=== PATIENT | male | born 1940 | race Hispanic/Latino ===

== ENCOUNTER 2018-10-02 14:37 | Inpatient (IN) | payer MEDICARE ==
--- NOTE | 2018-10-02 14:44 | Emergency Department Report ---
Blank Doc - Documentation Documentation: This is a 78-year-old male that presents with right sided chest pain with shor tness of breathe. This initial assessment/diagnostic orders/clinical plan/treatment(s) is/are subject to change based on patient's health status, clinical progression and re- assessment by fellow clinical providers in the ED. Further treatment and workup at subsequent clinical providers discretion. Patient/guardians urged not to elope from the ED as their condition may be serious if not clinically assessed and managed. Initial orders include: 1- Patient sent to MAIN ED for further evaluation and treatment 2- Labs 3- EKG 4- CXR 5- Charge nurse notified patient to be brought back [facility].
[2018-10-02 15:12] LABS: Basophils % (Auto) 0.7 % (0.0-1.8); Eosinophils # (Auto) 0.1 K/mm3 (0.0-0.4); Eosinophils % (Auto) 1.6 % (0.0-4.3); Hematocrit 36.4 % (35.5-45.6); Lymphocytes # (Auto) 1.6 K/mm3 (1.2-5.4); Lymphocytes % (Auto) 23.8 % (13.4-35.0); Mean Corpuscular HGB Conc 33 % (32-34); Mean Corpuscular Volume 94 fl (84-94); Monocytes # (Auto) 0.5 K/mm3 (0.0-0.8); Monocytes % (Auto) 7.3 % (0.0-7.3); Platelet Count 141 K/mm3 (140-440); Red Blood Count 3.87 M/mm3 (3.65-5.03); Red Cell Distribution Width 15.4 % (13.2-15.2)
[2018-10-02 15:28] LABS: Creatine Kinase MB 4.6 ng/mL (0.0-4.0); INR 1.59 (0.87-1.13)
[2018-10-02 15:29] LABS: BUN/Creatinine Ratio 15; Blood Urea Nitrogen 22 mg/dL (9-20); Calcium 9.1 mg/dL (8.4-10.2); Hemolysis Index 7; Partial Thromboplastin Time 33.5 Sec. (24.2-36.6)
[2018-10-02] MEDS ORDERED: CARDIZEM IV ONE (15:45)
--- NOTE | 2018-10-02 16:00 | Emergency Department Report ---
ED Shortness of Breath HPI - General Chief Complaint: Dyspnea/Respdistress Stated Complaint: RAPID HEARTBEAT/SOB Time Seen by Provider: 10/02/18 14:42 Source: patient Mode of arrival: Wheelchair Limitations: No Limitations - History of Present Illness Initial Comments: 78-year-old male with history Afib, currently on Cardizem and a Eliquis, presents to ED with palpitations and shortness of breath. The patient also reports mild right-sided chest pain. 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: Bhavna Heart Complaint: shortness of breath, chest pain -: This afternoon Severity: moderate Quality: sharp Consistency: constant Improves With: nothing Worsens With: nothing Associated Symptoms: chest pain - Related Data Home Oxygen Therapy: No Home Medications Medication Instructions Recorded Confirmed Last Taken Apixaban [Eliquis] 5 mg PO QDAY 10/03/18 10/03/18 10/02/18 Atorvastatin [Lipitor Tab] 40 mg PO QHS 10/03/18 10/03/18 Unknown Imatinib Mesylate [Gleevec] 200 mg PO DAILY 10/03/18 10/03/18 10/02/18 09:00 Imatinib Mesylate [Gleevec] 200 mg PO QDAY 10/03/18 10/03/18 10/02/18 Losartan Potassium 100 mg QDAY 10/03/18 10/03/18 10/02/18 Metoprolol Xl 100 mg QDAY 10/03/18 10/03/18 10/02/18 dilTIAZem [CarDIZEM] 30 mg PO TID 10/03/18 10/03/18 Unknown Allergies Allergy/AdvReac Type Severity Reaction Status Date / Time No Known Allergies Allergy Unverified 01/13/15 08:38 ED Review of Systems ROS: Stated complaint: RAPID HEARTBEAT/SOB Other details as noted in HPI Comment: All other systems reviewed and negative Constitutional: denies: chills, fever Respiratory: shortness of breath. denies: cough Cardiovascular: chest pain, palpitations ED Past Medical Hx - Past Medical History Hx Hypertension: Yes Additional medical history: Luekemia-remission,esophagus narrowing,elevated cholesterol, AFIB - Surgical History Past Surgical History?: No - Social History Smoking Status: Former Smoker Substance Use Type: None - Medications Home Medications: Home Medications Medication Instructions Recorded Confirmed Last Taken Type Apixaban [Eliquis] 5 mg PO QDAY 10/03/18 10/03/18 10/02/18 History Atorvastatin [Lipitor Tab] 40 mg PO QHS 10/03/18 10/03/18 Unknown History Imatinib Mesylate [Gleevec] 200 mg PO DAILY 10/03/18 10/03/18 10/02/18 09:00 History Imatinib Mesylate [Gleevec] 200 mg PO QDAY 10/03/18 10/03/18 10/02/18 History Losartan Potassium 100 mg QDAY 10/03/18 10/03/18 10/02/18 History Metoprolol Xl 100 mg QDAY 10/03/18 10/03/18 10/02/18 History dilTIAZem [CarDIZEM] 30 mg PO TID 10/03/18 10/03/18 Unknown History ED Physical Exam - General Limitations: No Limitations General appearance: alert - Head Head exam: Present: atraumatic, normocephalic - Eye Eye exam: Present: normal appearance - ENT ENT exam: Present: mucous membranes moist - Neck Neck exam: Present: normal inspection - Respiratory Respiratory exam: Present: other (slightly tachypneic) - Cardiovascular Cardiovascular Exam: Present: tachycardia, irregular rhythm - GI/Abdominal GI/Abdominal exam: Absent: soft, distended, tenderness - Extremities Exam Extremities exam: Present: pedal edema (1+ bilaterally) - Neurological Exam Neurological exam: Present: alert, oriented X3 - Psychiatric Psychiatric exam: Present: normal affect, normal mood - Skin Skin exam: Present: warm, dry, intact, normal color ED Course Vital Signs 10/02/18 10/02/18 10/02/18 14:40 15:12 15:15 Temperature 97.5 F L Pulse Rate 118 H 120 H 127 H Pulse Rate [ Apical] Pulse Rate [ From Monitor] Pulse Rate [ Left Radial] Respiratory 24 20 21 Rate Blood Pressure Blood Pressure [Left] Blood Pressure 137/84 [Right] O2 Sat by Pulse 97 89 98 Oximetry 10/02/18 10/02/18 10/02/18 15:31 15:45 15:52 Temperature Pulse Rate 139 H 144 H 130 H Pulse Rate [ Apical] Pulse Rate [ From Monitor] Pulse Rate [ Left Radial] Respiratory 27 H 27 H Rate Blood Pressure Blood Pressure [Left] Blood Pressure [Right] O2 Sat by Pulse 98 98 Oximetry 10/02/18 10/02/1810/02/19 15:54 16:01 16:15 Temperature Pulse Rate 110 H 99 H 107 H Pulse Rate [ Apical] Pulse Rate [ From Monitor] Pulse Rate [ Left Radial] Respiratory 20 23 19 Rate Blood Pressure Blood Pressure 121/72 [Left] Blood Pressure [Right] O2 Sat by Pulse 100 100 99 Oximetry 10/02/18 10/02/18 10/02/18 16:30 16:45 16:49 Temperature 98 F Pulse Rate 114 H 112 H 120 H Pulse Rate [ Apical] Pulse Rate [ From Monitor] Pulse Rate [ Left Radial] Respiratory 25 H 18 20 Rate Blood Pressure 120/78 126/52 Blood Pressure 125/54 [Left] Blood Pressure [Right] O2 Sat by Pulse 98 100 98 Oximetry 10/02/18 10/02/18 10/02/18 17:00 17:15 17:30 Temperature Pulse Rate 123 H 117 H 111 H Pulse Rate [ Apical] Pulse Rate [ From Monitor] Pulse Rate [ Left Radial] Respiratory 25 H 25 H 27 H Rate Blood Pressure 127/76 129/76 Blood Pressure [Left] Blood Pressure [Right] O2 Sat by Pulse 98 95 99 Oximetry 10/02/18 10/02/18 10/02/18 17:45 18:00 18:15 Temperature Pulse Rate 105 H 127 H 127 H Pulse Rate [ Apical] Pulse Rate [ From Monitor] Pulse Rate [ Left Radial] Respiratory 28 H 19 26 H Rate Blood Pressure Blood Pressure [Left] Blood Pressure [Right] O2 Sat by Pulse 99 99 97 Oximetry 10/02/18 10/02/18 10/02/18 18:30 18:43 18:55 Temperature 97.7 F Pulse Rate 119 H 120 H 113 H Pulse Rate [ Apical] Pulse Rate [ From Monitor] Pulse Rate [ Left Radial] Respiratory 26 H 18 19 Rate Blood Pressure Blood Pressure 139/77 [Left] Blood Pressure [Right] O2 Sat by Pulse 98 97 Oximetry 10/02/18 10/02/18 10/02/18 19:01 19:15 19:30 Temperature Pulse Rate 119 H 129 H 120 H Pulse Rate [ Apical] Pulse Rate [ From Monitor] Pulse Rate [ Left Radial] Respiratory 22 26 H 24 Rate Blood Pressure 112/82 144/90 138/79 Blood Pressure [Left] Blood Pressure [Right] O2 Sat by Pulse 100 100 85 Oximetry 10/02/18 10/02/1819 19:45 20:01 20:15 Temperature Pulse Rate 114 H 129 H 127 H Pulse Rate [ Apical] Pulse Rate [ From Monitor] Pulse Rate [ Left Radial] Respiratory 23 18 24 Rate Blood Pressure 142/84 115/69 150/102 Blood Pressure [Left] Blood Pressure [Right] O2 Sat by Pulse 100 91 Oximetry 10/02/18 10/02/18 10/02/18 20:30 20:45 21:01 Temperature Pulse Rate 112 H 122 H 120 H Pulse Rate [ Apical] Pulse Rate [ From Monitor] Pulse Rate [ Left Radial] Respiratory 26 H 18 22 Rate Blood Pressure 135/78 128/82 125/81 Blood Pressure [Left] Blood Pressure [Right] O2 Sat by Pulse 99 97 98 Oximetry 10/02/18 10/02/18 10/02/18 21:11 21:20 21:31 Temperature Pulse Rate 134 H 108 H 122 H Pulse Rate [ Apical] Pulse Rate [ From Monitor] Pulse Rate [ Left Radial] Respiratory 26 H 24 23 Rate Blood Pressure 127/87 133/77 127/87 Blood Pressure [Left] Blood Pressure [Right] O2 Sat by Pulse 97 96 Oximetry 10/02/18 22:00 Temperature Pulse Rate 115 H Pulse Rate [ 120 H Apical] Pulse Rate [ 120 H From Monitor] Pulse Rate [ 122 H Left Radial] Respiratory Rate Blood Pressure Blood Pressure [Left] Blood Pressure [Right] O2 Sat by Pulse 97 Oximetry ED Medical Decision Making - Lab Data Result diagrams: 10/03/18 05:49 10/03/18 05:49 - EKG Data -: EKG Interpreted by Mo EKG shows normal: axis, intervals, QRS complexes, ST-T waves Rate: tachycardia (rate 126) - EKG Data Interpretation: other (Afib w/ RVR) - Radiology Data Radiology results: pending, report reviewed, image reviewed - Medical Decision Making 78-year-old male with history of A. fib presents with palpitations and shortness of breath. Symptoms of Cardizem was given, repeat briefly responded, however patient returned to a rate in the 120s. EKG showed no ST changes, troponin negative. CTA was obtained which did not show evidence of PE, however does show pericardial effusion and bilateral pleural effusions. Blood pressure has been stable. Will admit to hospitalist, Dr. Palomino, for further evaluation. Will try amiodarone for rate control. - Differential Diagnosis Afib w/ RVR, ACS, PE, pulm edema Critical Care Time: Yes Critical care time in (mins) excluding proc time.: 35 Critical care attestation.: If time is entered above; I have spent that time in minutes in the direct care of this critically ill patient, excluding procedure time. Critical Care Time: 35 minutes ED Disposition Clinical Impression: Atrial fibrillation with rapid ventricular response, Pleural effusion Disposition: OP ADMIT IP TO THIS HOSP Is pt being admited?: Yes Condition: Stable Time of Disposition: 19:34
--- NOTE | 2018-10-02 16:03 | XRay Report ---
PROCEDURES: XR CHEST 1V AP TECHNIQUE: AP portable view of the chest. HISTORY: Dyspnea COMPARISON: None FINDINGS: Lines, tubes, and devices: N/A Lungs and pleura: Trachea is normal in position. Mild infiltrate in the left lung base medially is se en. Cardiomediastinal silhouette: The heart lies in the right side of the chest consistent with dextrocar kizzy. The descending thoracic aorta appears to the left of the spine. The image is labeled with both r ight and left side markers. Gastric bubble was not visualized diaphragms to determine situs inversus. Other: Bony structures are intact. IMPRESSION: Mild infiltrate in the left base. Evidence for dextrocardia although the descending thoracic aorta is to left of the spine. This document is electronically signed by Jacinda Koehler MD., October 02 2018 04:00:51 PM ET
[2018-10-02] MEDS ORDERED: LOPRESSOR IV ONE (18:50)
[2018-10-02] MEDS ORDERED: LASIX IV ONE (19:33)
--- NOTE | 2018-10-02 19:37 | History and Physical Report ---
History of Present Illness Chief complaint: My heart is beating fast, and I cant breathe History of present illness: 78 YO Male with Atrial Fib currently on Therapeutic Anticoagulation(Eliquis), Leukemia(In Remission), HLD, HTN presents to ED for evaluation. Pt states that he has experienced chest palpitations for the past 1 day with worsening symptoms over the past 6 hours. Pt also acknowledges shortness of breath and right sided chest pain. Pt states that pain is 3-5/10, sharp, constant, not worsened with exertion, not relieved with rest. Pt transported to [facility] via private vehicle. Pt seen and evaluated in ED and found to have Atrial Fib with RVR as well as Respiratory Failure. Pt also found to have symptoms consistent with CHF complicated by bilateral pleural effusions. Pt initiated on amiodarone drip and admitted to telemetry. Cardiology consulted in ED. Pt denies fever, chills, NVD, Trauma, Medication noncompliance, skin rash, or recent ill contacts. Pt family at bedside during exam and interview. Discussed plan of care. Pt and family acknowledge understanding and agreement with care plan. Past History Past Medical History: atrial fib, cancer, hypertension, hyperlipidemia Past Surgical History: No surgical history, Other (reviewed) Social history: . denies: smoking, alcohol abuse, prescription drug abuse, IV drug use Family history: hypertension Medications and Allergies Allergies Allergy/AdvReac Type Severity Reaction Status Date / Time No Known Allergies Allergy Unverified 01/13/15 08:38 Review of Systems Constitutional: no weight loss, no weight gain, no fever, no chills Ears, nose, mouth and throat: no ear pain, no ear discharge, no tinnitis, no decreased hearing, no nose pain, no nasal discharge Cardiovascular: chest pain, palpitations, rapid/irregular heart beat, shortness of breath Respiratory: no cough, no cough with sputum, no excessive sputum, no hemoptysis Gastrointestinal: no abdominal pain, no nausea, no vomiting, no diarrhea, no constipation Genitourinary Male: no dysuria, no hematuria, no flank pain, no discharge, no urinary frequency, no urinary hesitancy Rectal: no pain, no incontinence, no bleeding Musculoskeletal: no neck stiffness, no neck pain, no shooting arm pain, no arm numbness/tingling, no low back pain, no shooting leg pain, no leg numbness/tingling Integumentary: no rash, no pruritis, no redness, no sores, no wounds Psychiatric: no memory loss, no change in sleep habits, no sleep disturbances, no insomnia, no hypersomnia, no change in appetite, no change in libido, no suicidal ideation Endocrine: no cold intolerance, no heat intolerance, no polyphagia, no excessive thirst, no excessive sweating Hematologic/Lymphatic: no easy bruising, no easy bleeding, no lymphadenopathy, no lymphedema Allergic/Immunologic: no wheezing, no persistent infections, no anaphylaxis, no angioedema Exam - Constitutional Vitals: Temp Pulse Resp BP Pulse Ox 97.7 F 129 H 26 H 144/90 100 10/02/18 18:43 10/02/18 19:15 10/02/18 19:15 10/02/18 19:15 10/02/18 19:15 General appearance: Present: mild distress - EENT Eyes: Present: PERRL ENT: hearing intact, clear oral mucosa - Neck Neck: Present: supple, normal ROM - Respiratory Respiratory effort: normal Respiratory: bilateral: diminished, rhonchi - Cardiovascular Rhythm: other (tachycardia) Heart Sounds: Present: S1 & S2. Absent: rub, click - Extremities Extremities: pulses symmetrical, No edema Peripheral Pulses: within normal limits - Abdominal General gastrointestinal: Present: soft, non-tender, non-distended, normal bowel sounds Male genitourinary: Present: normal - Integumentary Integumentary: Present: clear, warm, dry - Musculoskeletal Musculoskeletal: gait normal, strength equal bilaterally - Psychiatric Psychiatric: appropriate mood/affect, intact judgment & insight - Neurologic Neurologic: CNII-XII intact, moves all extremities Results - Labs CBC & Chem 7: 10/02/18 14:56 10/02/18 14:56 Labs: Abnormal lab results 10/02/18 10/02/18 10/02/18 Range/Units 14:56 14:56 14:56 RDW 15.4 H (13.2-15.2) % PT 20.0 H (12.2-14.9) Sec. INR 1.59 H (0.87-1.13) D-Dimer (0-234) ng/mlDDU Chloride 107.7 H (98-107) mmol/L BUN 22 H (9-20) mg/dL Glucose 154 H (75-100) mg/dL CK-MB (CK-2) 4.6 H (0.0-4.0) ng/mL CK-MB (CK-2) Rel Index 6.7 H (0-4) NT-Pro-B Natriuret Pep (0-900) pg/mL 10/02/18 10/02/18 Range/Units 15:45 16:06 RDW (13.2-15.2) % PT (12.2-14.9) Sec. INR (0.87-1.13) D-Dimer 901.3 H (0-234) ng/mlDDU Chloride (98-107) mmol/L BUN (9-20) mg/dL Glucose (75-100) mg/dL CK-MB (CK-2) (0.0-4.0) ng/mL CK-MB (CK-2) Rel Index (0-4) NT-Pro-B Natriuret Pep 3857 H (0-900) pg/mL Assessment and Plan - Patient Problems (1) Atrial fibrillation with rapid ventricular response Current Visit: Yes Status: Acute Plan to address problem: Admit to telemetry, Amiodarone bolus, and initiate amiodarone drip, target heart rate overnight between 75-100. Cardiology consulted in ED, (2) Respiratory failure Current Visit: Yes Status: Acute Qualifiers: Chronicity: acute Respiratory failure complication: hypoxia Qualified Code(s): J96.01 - Acute respiratory failure with hypoxia Plan to address problem: Supplemental oxygen, nebulizer therapy, NIPPV as clinically indicated, pulse oximetry, chest x ray, D dimer, CTA chest (3) CHF (congestive heart failure) Current Visit: Yes Status: Acute Qualifiers: Heart failure type: systolic Heart failure chronicity: acute Qualified Code(s): I50.21 - Acute systolic (congestive) heart failure Plan to address problem: Admit to telemetry, echo, cardiology consulted in ED, strict I/O, daily weight, afterload reduction, monitor uop q shift, diuresis as tolerated, (4) Pleural effusion Current Visit: Yes Status: Acute Plan to address problem: supportive care, treat CHF, repeat chest x ray 1-2 days as clinically indicated, (5) DVT prophylaxis Current Visit: Yes Status: Acute Plan to address problem: SCD to BLE while in bed.
[2018-10-02] MEDS ORDERED: PERCOCET 5/325 PO PRN (19:44)
[2018-10-02] MEDS ORDERED: PROVENTIL IH PRN (19:44)
[2018-10-02] MEDS ORDERED: MORPHINE IV PRN (19:44)
[2018-10-02] MEDS ORDERED: SODIUM CHLORIDE FLUSH SYRINGE 10 ML IV PRN (19:44)
[2018-10-02] MEDS ORDERED: TYLENOL PO PRN (19:44)
[2018-10-02] MEDS ORDERED: CORDARONE 900 MG in D5W 482 ML IV SCH (20:00)
--- NOTE | 2018-10-02 20:19 | Cat Scan Report ---
PROCEDURE: CT ANGIO CHEST HISTORY: chest pain, sob FINDINGS: Contrast-enhanced CT angiography of the chest was performed following the intravenous admin istration of iodinated contrast. Sagittal and coronal MIP three-dimensional reformatted images were g enerated. These images demonstrate no CT evidence of pulmonary thromboembolic disease. There is no aortic disse ction. There is coronary artery calcification. There is a large pericardial effusion, measuring up to 2 cm in thickness. There are bilateral pleural effusions, left greater than right. There is left apical linear nodular pulmonary scarring. There is lingular linear atelectasis. There is considerable wall thickening of the mid and distal esophagus consistent with esophagitis. In the upper abdomen the adrenal glands are within normal limits. The gallbladder is collapsed. There is gallbladder wall thickening which could be due to its collapsed state. IMPRESSION: No CT evidence of pulmonary thromboembolic disease Large pericardial effusion Bilateral pleural effusions This document is electronically signed by Luis Coley MD., October 02 2018 08:17:00 PM ET
[2018-10-02] MEDS ORDERED: CORDARONE 150 MG in D5W 97 ML IV ONE (20:30)
[2018-10-02 21:01] LABS: Free T4 (Free Thyroxine) 1.12 ng/dL (0.76-1.46)
[2018-10-02] MEDS: SODIUM CHLORIDE FLUSH SYRINGE 10 ML IV SCH (23:00)
[2018-10-03 06:25] LABS: Basophils % (Auto) 0.5 % (0.0-1.8); Eosinophils # (Auto) 0.1 K/mm3 (0.0-0.4); Eosinophils % (Auto) 1.3 % (0.0-4.3); Hematocrit 35.1 % (35.5-45.6); Hemoglobin 11.4 gm/dl (11.8-15.2); Lymphocytes # (Auto) 1.3 K/mm3 (1.2-5.4); Lymphocytes % (Auto) 20.8 % (13.4-35.0); Mean Corpuscular HGB Conc 33 % (32-34); Mean Corpuscular Volume 94 fl (84-94); Monocytes # (Auto) 0.6 K/mm3 (0.0-0.8); Monocytes % (Auto) 9.7 % (0.0-7.3); Platelet Count 116 K/mm3 (140-440); Red Blood Count 3.74 M/mm3 (3.65-5.03); Red Cell Distribution Width 15.5 % (13.2-15.2)
--- NOTE | 2018-10-03 09:25 | Consultation ---
History of Present Illness Consult date: 10/03/18 Consult reason: atrial fibrillation, chest pain History of present illness: Patient is an 78 year old male who presented with shortness of breath and chest pain, admitted with symptomatic atrial fibrillation. In addition, patient has had prior esophageal dilation but reports dysphagia with nausea and vomiting. Patient is known to [facility] and has permanent atrial fibrillation managed with Toprol XL, Cardizem and Eliquis for oral anticoagulation. Patient admits to compliance with his medications. He has dextrocardia, a history of hypertension and coronary artery disease. His latest echocardiogram, done in July of this year, documents a ejection fraction 45-50%. Chest CT scan reports bilateral pleural effusion. No evidence of pulmonary embolism. Labs shows a TSH 6.1. Platelet count at 116k. His ECG is rapid atrial fibrillation, rate 126. Past History Past Medical History: atrial fib, cancer, hypertension, hyperlipidemia, other (Dextrocardia) Social history: . denies: smoking, alcohol abuse, prescription drug abuse, IV drug use Family history: hypertension Medications and Allergies Allergies Allergy/AdvReac Type Severity Reaction Status Date / Time No Known Allergies Allergy Unverified 01/13/15 08:38 Home Medications Medication Instructions Recorded Confirmed Last Taken Type Apixaban [Eliquis] 5 mg PO QDAY 10/03/18 10/03/18 10/02/18 History Imatinib Mesylate [Gleevec] 200 mg PO QDAY 10/03/18 10/03/18 10/02/18 History Losartan Potassium 100 mg QDAY 10/03/18 10/03/18 10/02/18 History Metoprolol Xl 100 mg QDAY 10/03/18 10/03/18 10/02/18 History Active Meds: Active Medications Acetaminophen (Tylenol) 650 mg PO Q4H PRN PRN Reason: Pain MILD(1-3)/Fever >100.5/CHAIREZ Last Admin: 10/03/18 09:06 Dose: 650 mg Documented by: Albuterol (Proventil) 2.5 mg IH Q4HRT PRN PRN Reason: Shortness Of Breath Amiodarone HCl 900 mg/ (Dextrose) 500 mls @ 33.333 mls/hr IV DIRECT UZAIR; Protocol Last Admin: 10/02/18 21:09 Dose: 1 mg/min, 33.333 mls/hr Documented by: Morphine Sulfate (Morphine) 2 mg IV Q4H PRN PRN Reason: Pain, Moderate (4-6) Ondansetron HCl (Zofran) 4 mg IV Q8H PRN PRN Reason: Nausea And Vomiting Oxycodone/Acetaminophen (Percocet 5/325) 1 tab PO Q6H PRN PRN Reason: Pain, Moderate (4-6) Sodium Chloride (Sodium Chloride Flush Syringe 10 Ml) 10 ml IV BID UZAIR Last Admin: 10/02/18 23:00 Dose: 10 ml Documented by: Sodium Chloride (Sodium Chloride Flush Syringe 10 Ml) 10 ml IV PRN PRN PRN Reason: LINE FLUSH Physical Examination Vital Signs Temp Pulse Resp BP Pulse Ox 97.5 F L 118 H 24 137/84 97 10/02/18 14:40 10/02/18 14:40 10/02/18 14:40 10/02/18 14:40 10/02/18 14:40 General appearance: no acute distress HEENT: Positive: PERRL Cardiac: Positive: irregularly irregular Lungs: Positive: Decreased Breath Sounds Neuro: Positive: Grossly Intact Extremities: Present: +1 Edema Results 10/03/18 05:49 10/03/18 05:49 Cardiac Enzymes 10/02/18 Range/Units 14:56 CK-MB (CK-2) 4.6 H (0.0-4.0) ng/mL Coagulation 10/02/18 Range/Units 14:56 PT 20.0 H (12.2-14.9) Sec. INR 1.59 H (0.87-1.13) APTT 33.5 (24.2-36.6) Sec. CBC 10/02/18 10/03/18 Range/Units 14:56 05:49 WBC 6.9 6.1 (4.5-11.0) K/mm3 RBC 3.87 3.74 (3.65-5.03) M/mm3 Hgb 12.0 11.4 L (11.8-15.2) gm/dl Hct 36.4 35.1 L (35.5-45.6) % Plt Count 141 116 L (140-440) K/mm3 Lymph # 1.6 1.3 (1.2-5.4) K/mm3 [place] # 0.5 0.6 (0.0-0.8) K/mm3 Eos # 0.1 0.1 (0.0-0.4) K/mm3 Baso # 0.0 0.0 (0.0-0.1) K/mm3 Comprehensive Metabolic Panel 10/02/18 10/03/18 Range/Units 14:56 05:49 Sodium 138 137 (137-145) mmol/L Potassium 4.9 4.4 (3.6-5.0) mmol/L Chloride 107.7 H 103.7 (98-107) mmol/L Carbon Dioxide 25 25 (22-30) mmol/L BUN 22 H 22 H (9-20) mg/dL Creatinine 1.5 1.5 (0.8-1.5) mg/dL Glucose 154 H 120 H (75-100) mg/dL Calcium 9.1 9.0 (8.4-10.2) mg/dL
[2018-10-03] MEDS: SODIUM CHLORIDE FLUSH SYRINGE 10 ML IV SCH ×2 (12:43→23:14)
[2018-10-03] MEDS: ZOFRAN IV PRN (12:46)
--- NOTE | 2018-10-03 16:17 | Gastroenterology Consultation ---
History of Present Illness - Reason for Consult Consult date: 10/03/18 regurgitation/vomiting Requesting physician: MAUDE MANUEL - History of Present Illness Patient is a 78y/o male with PMH of dextrocardia, AFib (on Eliquis), Leukemia (in remission), HLD, and HTN who presented to ED with c/o palpitations, SOB, and CP. Upon admission, he was found to have symptoms c/w CHF and AFib with RVR as well as respiratory failure. Cardiology following. He also has c/o regurgitation with vomiting to which GI has been consulted. This afternoon patient was resting in bed w/o acute distress. He report a hx of an esophageal stricture requiring dilation in the past (last EGD with dil approximately 2 years ago; followed by Dr. Oro) with now recurrent symptoms of dysphagia, regurgitation, and vomiting. Denies wt loss, odynophagia, signs of bleeding, or LGI symptoms. Past History Past Medical History: atrial fib, cancer, hypertension, hyperlipidemia, other (Dextrocardia) Past Surgical History: No surgical history, Other (reviewed) Social history: . denies: smoking, alcohol abuse, prescription drug abuse, IV drug use Family history: hypertension Medications and Allergies Allergies Allergy/AdvReac Type Severity Reaction Status Date / Time No Known Allergies Allergy Unverified 01/13/15 08:38 Home Medications Medication Instructions Recorded Confirmed Last Taken Type Apixaban [Eliquis] 5 mg PO QDAY 10/03/18 10/03/18 10/02/18 History Imatinib Mesylate [Gleevec] 200 mg PO QDAY 10/03/18 10/03/18 10/02/18 History Losartan Potassium 100 mg QDAY 10/03/18 10/03/18 10/02/18 History Metoprolol Xl 100 mg QDAY 10/03/18 10/03/18 10/02/18 History Active Meds: Active Medications Acetaminophen (Tylenol) 650 mg PO Q4H PRN PRN Reason: Pain MILD(1-3)/Fever >100.5/CHAIREZ Last Admin: 10/03/18 09:06 Dose: 650 mg Documented by: Albuterol (Proventil) 2.5 mg IH Q4HRT PRN PRN Reason: Shortness Of Breath Apixaban (Eliquis) 2.5 mg PO BID UZAIR Digoxin (Lanoxin) 0.25 mg IV Q6HR [facility] Stop: 10/03/18 18:01 Digoxin (Lanoxin) 0.25 mg PO DAILY@1700 [facility] Diltiazem HCl (Cardizem) 60 mg PO Q6HR [facility] Metoprolol Tartrate (Lopressor) 50 mg PO Q6HR [facility] Morphine Sulfate (Morphine) 2 mg IV Q4H PRN PRN Reason: Pain, Moderate (4-6) Ondansetron HCl (Zofran) 4 mg IV Q8H PRN PRN Reason: Nausea And Vomiting Last Admin: 10/03/18 12:46 Dose: 4 mg Documented by: Oxycodone/Acetaminophen (Percocet 5/325) 1 tab PO Q6H PRN PRN Reason: Pain, Moderate (4-6) Sodium Chloride (Sodium Chloride Flush Syringe 10 Ml) 10 ml IV BID [facility] Last Admin: 10/03/18 12:43 Dose: 10 ml Documented by: Sodium Chloride (Sodium Chloride Flush Syringe 10 Ml) 10 ml IV PRN PRN PRN Reason: LINE FLUSH medications reviewed/updated as required Review of Systems - Review of Systems All systems: negative Gastrointestinal: vomiting, other (dysphagia, regurgitation) Exam - Constitutional Vital Signs: Temp Pulse Resp BP Pulse Ox 98.3 F 134 H 18 132/84 96 10/03/18 13:10 10/03/18 13:10 10/03/18 13:10 10/03/18 13:10 10/03/18 13:10 General appearance: no acute distress - Respiratory Respiratory: bilateral: diminished - Cardiovascular Rhythm: other (irregular) - Gastrointestinal General gastrointestinal: Present: soft, non-tender, non-distended, normal bowel sounds - Labs CBC & Chem 7: 10/03/18 05:49 10/03/18 05:49 Lab Results: Laboratory Results - last 24 hr 10/02/18 10/02/18 10/02/18 15:45 16:06 20:10 WBC RBC Hgb Hct MCV MCH MCHC RDW Plt Count Lymph % (Auto) [place] % (Auto) Eos % (Auto) Baso % (Auto) Lymph # [place] # Eos # Baso # Seg Neutrophils % Seg Neutrophils # D-Dimer 901.3 H Sodium Potassium Chloride Carbon Dioxide Anion Gap BUN Creatinine Estimated GFR BUN/Creatinine Ratio Glucose Calcium Troponin T NT-Pro-B Natriuret Pep 3857 H TSH 6.150 H Free T4 1.12 10/02/18 10/03/18 10/03/18 20:25 05:49 05:49 WBC 6.1 RBC 3.74 Hgb 11.4 L Hct 35.1 L MCV 94 MCH 31 MCHC 33 RDW 15.5 H Plt Count 116 L Lymph % (Auto) 20.8 [place] % (Auto) 9.7 H Eos % (Auto) 1.3 Baso % (Auto) 0.5 Lymph # 1.3 [place] # 0.6 Eos # 0.1 Baso # 0.0 Seg Neutrophils % 67.7 Seg Neutrophils # 4.1 D-Dimer Sodium 137 Potassium 4.4 Chloride 103.7 Carbon Dioxide 25 Anion Gap 13 BUN 22 H Creatinine 1.5 Estimated GFR 45 BUN/Creatinine Ratio 15 Glucose 120 H Calcium 9.0 Troponin T < 0.010 NT-Pro-B Natriuret Pep TSH Free T4 Assessment and Plan 1.dysphagia 2.regurgitation/vomiting 3.H/o esophageal stricture -patient with hx of esophageal stricture requiring dilations with last EGD/dil approximately 2 years ago (Dr. Oro) with now recurrent symptoms -will schedule for EGD with possible dilation on (currently on Eliquis which will need to be held x 2days; okay to hold per cardiology-spoke with Dr. Rodgers) -hold Eliquis as above -diet as tolerated -daily PPI -continue supportive care -will follow
--- NOTE | 2018-10-03 17:24 | Progress Note ---
Assessment and Plan Assessment and plan: (1) Atrial fibrillation with rapid ventricular response - Patient is on Toprol, Cardizem and will add digoxin if not controlled per cardiology - Patient will have echo tomorrow (2) Respiratory failure - Resolved with oxygen, supportive care - patient has elevated d-dimer and CT was done which was negative (3) CHF (congestive heart failure), pericardial effusion - We'll have echo tomorrow (4) Pleural effusion - Continue diuresis (5) DVT prophylaxis Continue eliquis Disposition - Continue inpatient care History Interval history: Patient was seen and evaluated this morning, patient's shortness of breath is getting better. Management plan discussed with the patient and his family members. Hospitalist Physical - Physical exam Narrative exam: Not in cardiopulmonary distress. The patient appeared well nourished and normally developed. Vital signs as documented. Head exam is unremarkable. No scleral icterus . Neck is without jugular venous distension, thyromegaly, or carotid bruits. Lungs are clear to auscultation. Cardiac exam reveals irregular rate and Rhythm. tachycardia Abdominal exam reveals normal bowel sounds, no masses, no organomegaly and no aortic enlargement. Extremities are nonedematous and both femoral and pedal pulses are normal. 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 No focal weakness. - Constitutional Vitals: Temp Pulse Resp BP Pulse Ox 98.3 F 134 H 18 132/84 96 10/03/18 13:10 10/03/18 13:10 10/03/18 13:10 10/03/18 13:10 10/03/18 13:10 General appearance: Present: no acute distress Results - Labs CBC & Chem 7: 10/03/18 05:49 10/03/18 05:49 Labs: Laboratory Last Values WBC 6.1 K/mm3 (4.5-11.0) 10/03/18 05:49 RBC 3.74 M/mm3 (3.65-5.03) 10/03/18 05:49 Hgb 11.4 gm/dl (11.8-15.2) L 10/03/18 05:49 Hct 35.1 % (35.5-45.6) L 10/03/18 05:49 MCV 94 fl (84-94) 10/03/18 05:49 MCH 31 pg (28-32) 10/03/18 05:49 MCHC 33 % (32-34) 10/03/18 05:49 RDW 15.5 % (13.2-15.2) H 10/03/18 05:49 Plt Count 116 K/mm3 (140-440) L 10/03/18 05:49 Lymph % (Auto) 20.8 % (13.4-35.0) 10/03/18 05:49 [place] % (Auto) 9.7 % (0.0-7.3) H 10/03/18 05:49 Eos % (Auto) 1.3 % (0.0-4.3) 10/03/18 05:49 Baso % (Auto) 0.5 % (0.0-1.8) 10/03/18 05:49 Lymph # 1.3 K/mm3 (1.2-5.4) 10/03/18 05:49 [place] # 0.6 K/mm3 (0.0-0.8) 10/03/18 05:49 Eos # 0.1 K/mm3 (0.0-0.4) 10/03/18 05:49 Baso # 0.0 K/mm3 (0.0-0.1) 10/03/18 05:49 Seg Neutrophils % 67.7 % (40.0-70.0) 10/03/18 05:49 Seg Neutrophils # 4.1 K/mm3 (1.8-7.7) 10/03/18 05:49 PT 20.0 Sec. (12.2-14.9) H 10/02/18 14:56 INR 1.59 (0.87-1.13) H 10/02/18 14:56 APTT 33.5 Sec. (24.2-36.6) 10/02/18 14:56 D-Dimer 901.3 ng/mlDDU (0-234) H 10/02/18 16:06 Sodium 137 mmol/L (137-145) 10/03/18 05:49 Potassium 4.4 mmol/L (3.6-5.0) 10/03/18 05:49 Chloride 103.7 mmol/L (98-107) 10/03/18 05:49 Carbon Dioxide 25 mmol/L (22-30) 10/03/18 05:49 Anion Gap 13 mmol/L 10/03/18 05:49 BUN 22 mg/dL (9-20) H 10/03/18 05:49 Creatinine 1.5 mg/dL (0.8-1.5) 10/03/18 05:49 Estimated GFR 45 ml/min 10/03/18 05:49 BUN/Creatinine Ratio 15 % 10/03/18 05:49 Glucose 120 mg/dL (75-100) H 10/03/18 05:49 Calcium 9.0 mg/dL (8.4-10.2) 10/03/18 05:49 Total Creatine Kinase 68 units/L (55-170) 10/02/18 14:56 CK-MB (CK-2) 4.6 ng/mL (0.0-4.0) H 10/02/18 14:56 CK-MB (CK-2) Rel Index 6.7 (0-4) H 10/02/18 14:56 Troponin T < 0.010 ng/mL (0.00-0.029) 10/02/18 20:25 NT-Pro-B Natriuret Pep 3857 pg/mL (0-900) H 10/02/18 15:45 TSH 6.150 mlU/mL (0.270-4.200) H 10/02/18 20:10 Free T4 1.12 ng/dL (0.76-1.46) 10/02/18 20:10
[2018-10-03] MEDS ORDERED: IMATINIB MESYLATE 200 MG PO SCH (18:00)
[2018-10-03] MEDS: LANOXIN IV SCH ×2 (18:25→23:04)
[2018-10-03] MEDS: LOPRESSOR PO SCH (18:26)
[2018-10-03] MEDS: PROTONIX PO SCH (18:26)
[2018-10-03] MEDS: CARDIZEM PO SCH ×2 (18:26→18:42)
[2018-10-03] MEDS ORDERED: ELIQUIS PO SCH (22:00)
[2018-10-03] MEDS: ELIQUIS PO SCH (23:13)
[2018-10-04] MEDS: LANOXIN IV SCH
[2018-10-04] MEDS ORDERED: LANOXIN IV SCH
[2018-10-04] MEDS: LOPRESSOR PO SCH ×4 (00:45→18:55)
[2018-10-04] MEDS: CARDIZEM PO SCH ×4 (00:45→18:55)
[2018-10-04] MEDS ORDERED: WATER FOR IRRIG STERILE IR ONE (07:57)
[2018-10-04 08:23] LABS: Calcium 8.6 mg/dL (8.4-10.2)
[2018-10-04] MEDS ORDERED: NACL 0.9% 1000 ML 1,000 ML IV SCH (08:30)
--- NOTE | 2018-10-04 09:14 | Progress Note ---
Subjective Date of service: 10/04/18 Interval history: Patient is scheduled for EGD with dilatation for recurrent esophageal stricture. Patient has extensive cardiac history with dextrocardia, a-fib, CHF and in the last two months developed pericardial effusion and plural effusion. Patient is in some respiratory distress, sitting in the bed, on O2, wheezing during auscultation. Diuretic treatment started on admission made patient feel better, but still patient is not optimized for EGD with anesthesia. Recommended continue treatment and reassess tomorrow. Objective - Constitutional Vitals: Vital Signs - 12hr 10/03/18 10/03/18 10/03/18 22:00 23:11 23:15 Temperature 98.1 F Pulse Rate 108 H 94 H 112 H Pulse Rate [ 120 H Apical] Pulse Rate [ 120 H From Monitor] Pulse Rate [ 112 H Left Radial] Respiratory 16 Rate Blood Pressure 101/70 Blood Pressure 101/70 [Left] O2 Sat by Pulse 99 92 Oximetry 10/04/18 10/04/18 10/04/18 00:45 03:33 05:36 Temperature 98.4 F Pulse Rate 108 H 108 H 114 H Pulse Rate [ Apical] Pulse Rate [ From Monitor] Pulse Rate [ Left Radial] Respiratory 16 Rate Blood Pressure 99/52 100/55 106/57 Blood Pressure [Left] O2 Sat by Pulse 89 Oximetry 10/04/18 10/04/18 10/04/18 05:41 06:00 08:30 Temperature Pulse Rate 114 H 115 H Pulse Rate [ 118 H Apical] Pulse Rate [ 120 H From Monitor] Pulse Rate [ 112 H Left Radial] Respiratory 18 Rate Blood Pressure 106/57 Blood Pressure [Left] O2 Sat by Pulse 98 Oximetry 10/04/18 10/04/18 08:40 08:45 Temperature 98.4 F 98.4 F Pulse Rate 99 H 99 H Pulse Rate [ Apical] Pulse Rate [ From Monitor] Pulse Rate [ Left Radial] Respiratory 18 18 Rate Blood Pressure 111/57 111/57 Blood Pressure [Left] O2 Sat by Pulse 98 98 Oximetry - Labs CBC & Chem 7: 10/03/18 05:49 10/04/18 06:47 Labs: Abnormal lab results 10/04/18 Range/Units 06:47 BUN 21 H (9-20) mg/dL Creatinine 1.6 H (0.8-1.5) mg/dL Glucose 108 H (75-100) mg/dL
[2018-10-04] MEDS: SODIUM CHLORIDE FLUSH SYRINGE 10 ML IV SCH ×2 (10:36→21:17)
[2018-10-04] MEDS: ELIQUIS PO SCH ×3 (10:46→21:17)
[2018-10-04] MEDS: PROTONIX PO SCH (10:47)
--- NOTE | 2018-10-04 11:24 | Progress Note ---
Assessment and Plan Shortness of breath CT angiogram of the chest reported a 2 cm pericardial effusion. Dysphagia with N/V Dextrocardia Chronic atrial fibrillation, rate control strategy. on oral Eliquis for chronic anticoagulation. echocardiogram 07/2018 reports left ventricle ejection fraction 45-50%. Chronic esophageal stricture Hypertension Recommendations: Continue optimal rate controlling agent of A. fib with Toprol, Cardizem and digoxin. Echocardiogram will be done for left ventricular functional reassessment, and optimal assessment of the degree of pericardial effusion. Subjective Date of service: 10/04/18 Interval history: For GI workup today. Afib with a well controlled rate on telemetry. Objective Vital Signs Temp Pulse Pulse Pulse Pulse Resp BP 10/04/18 08:45 98.4 F 99 H 18 111/57 10/04/18 08:40 98.4 F 99 H 18 111/57 10/04/18 08:30 118 H 120 H 112 H 18 10/04/18 06:00 115 H 10/04/18 05:41 114 H 106/57 10/04/18 05:36 114 H 106/57 10/04/18 03:33 98.4 F 108 H 16 100/55 10/04/18 00:45 108 H 99/52 10/03/18 23:15 112 H 101/70 10/03/18 23:11 98.1 F 94 H 16 10/03/18 22:00 108 H 120 H 120 H 112 H 10/03/18 19:52 98.3 F 125 H 18 128/75 10/03/18 13:10 98.3 F 134 H 18 132/84 BP Pulse Ox 10/04/18 08:45 98 10/04/18 08:40 98 10/04/18 08:30 98 10/04/18 06:00 10/04/18 05:41 10/04/18 05:36 10/04/18 03:33 89 10/04/18 00:45 10/03/18 23:15 10/03/18 23:11 101/70 92 10/03/18 22:00 99 10/03/18 19:52 99 10/03/18 13:10 96 - Physical Examination General: No Apparent Distress HEENT: Positive: PERRL Cardiac: Positive: irregularly irregular Lungs: Positive: Decreased Breath Sounds Neuro: Positive: Grossly Intact Extremities: Present: +1 Edema - Labs and Meds Comprehensive Metabolic Panel 10/04/18 Range/Units 06:47 Sodium 138 (137-145) mmol/L Potassium 4.9 (3.6-5.0) mmol/L Chloride 104.9 (98-107) mmol/L Carbon Dioxide 28 (22-30) mmol/L BUN 21 H (9-20) mg/dL Creatinine 1.6 H (0.8-1.5) mg/dL Glucose 108 H (75-100) mg/dL Calcium 8.6 (8.4-10.2) mg/dL
--- NOTE | 2018-10-04 14:06 | Gastroenterology Progress Note ---
Assessment and Plan 1.dysphagia 2.regurgitation/vomiting 3.H/o achalasia -I discussed plan of care with patient/patient's daughter this am. She reports patient having a hx of achalaia not an esophageal stricture with an extensive prior workup in the past, undergoing multiple EGDs with dilation and Botox injections with symptoms unimproved with further recommendations given for a surgical evaluation for a myotomy by primary GI (Dr Oro). She states patient was evaluated by surgery (possibly Dr. Matos) but is unaware of recommendations/plan of care given by surgeon after that visit. -no plan EGD at this time -recommend patient remain on liquid diet and f/u with primary GI vs surgery upon discharge for further treatment/management for achalasia -continue PPI -okay to resume Eliquis (plan of care discussed with cardiology) -continue supportive care -no further recommendations per GI standpoint at this time -will sign off, please call if needed Subjective Date of service: 10/04/18 Principal diagnosis: regurgitation/vomiting Interval history: Patient resting in bed w/o acute distress with daughter at bedside. Objective - Constitutional Vitals: Temp Pulse Resp BP Pulse Ox 98.4 F 99 H 18 111/57 98 10/04/18 08:45 10/04/18 08:45 10/04/18 08:45 10/04/18 08:45 10/04/18 08:45 General appearance: no acute distress - Respiratory Respiratory: bilateral: diminished - Cardiovascular Rhythm: other (irregular) - Gastrointestinal General gastrointestinal: Present: soft, non-tender, non-distended, normal bowel sounds - Labs CBC & Chem 7: 10/03/18 05:49 10/04/18 06:47 Labs: Laboratory Results - last 24 hr 10/04/18 06:47 Sodium 138 Potassium 4.9 Chloride 104.9 Carbon Dioxide 28 Anion Gap 10 BUN 21 H Creatinine 1.6 H Estimated GFR 42 BUN/Creatinine Ratio 13 Glucose 108 H Calcium 8.6
--- NOTE | 2018-10-04 17:06 | Progress Note ---
Assessment and Plan Assessment and plan: (1) Atrial fibrillation with rapid ventricular response - Patient is on Toprol, Cardizem and will add digoxin if not controlled per cardiology - Patient will have echo tomorrow (2) Respiratory failure - Resolved with oxygen, supportive care - patient has elevated d-dimer and CT was done which was negative (3) CHF (congestive heart failure), pericardial effusion - Echo showed pericardial effusion and cardiology consider to transfer to another facility with CTS for pericardiocentesis - Patient has dextrocardia (4) Pleural effusion - Continue diuresis (5) DVT prophylaxis Continue eliquis Achalasia - patient has been followed with Dr Oro and had dialtion before - Will follow as an O/P Disposition - Continue inpatient care History Interval history: Patient was seen and evaluated this morning, patient's shortness of breath is getting better. Management plan discussed with the patient and his family members. Hospitalist Physical - Physical exam Narrative exam: Not in cardiopulmonary distress. The patient appeared well nourished and normally developed. Vital signs as documented. Head exam is unremarkable. No scleral icterus . Neck is without jugular venous distension, thyromegaly, or carotid bruits. Lungs are clear to auscultation. Cardiac exam reveals irregular rate and Rhythm. tachycardia Abdominal exam reveals normal bowel sounds, no masses, no organomegaly and no aortic enlargement. Extremities are nonedematous and both femoral and pedal pulses are normal. 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 No focal weakness. - Constitutional Vitals: Temp Pulse Resp BP Pulse Ox 98.4 F 99 H 18 111/57 98 10/04/18 08:45 10/04/18 08:45 10/04/18 08:45 10/04/18 08:45 10/04/18 08:45 General appearance: Present: no acute distress Results - Labs CBC & Chem 7: 10/03/18 05:49 10/04/18 06:47 Labs: Laboratory Last Values WBC 6.1 K/mm3 (4.5-11.0) 10/03/18 05:49 RBC 3.74 M/mm3 (3.65-5.03) 10/03/18 05:49 Hgb 11.4 gm/dl (11.8-15.2) L 10/03/18 05:49 Hct 35.1 % (35.5-45.6) L 10/03/18 05:49 MCV 94 fl (84-94) 10/03/18 05:49 MCH 31 pg (28-32) 10/03/18 05:49 MCHC 33 % (32-34) 10/03/18 05:49 RDW 15.5 % (13.2-15.2) H 10/03/18 05:49 Plt Count 116 K/mm3 (140-440) L 10/03/18 05:49 Lymph % (Auto) 20.8 % (13.4-35.0) 10/03/18 05:49 [place] % (Auto) 9.7 % (0.0-7.3) H 10/03/18 05:49 Eos % (Auto) 1.3 % (0.0-4.3) 10/03/18 05:49 Baso % (Auto) 0.5 % (0.0-1.8) 10/03/18 05:49 Lymph # 1.3 K/mm3 (1.2-5.4) 10/03/18 05:49 [place] # 0.6 K/mm3 (0.0-0.8) 10/03/18 05:49 Eos # 0.1 K/mm3 (0.0-0.4) 10/03/18 05:49 Baso # 0.0 K/mm3 (0.0-0.1) 10/03/18 05:49 Seg Neutrophils % 67.7 % (40.0-70.0) 10/03/18 05:49 Seg Neutrophils # 4.1 K/mm3 (1.8-7.7) 10/03/18 05:49 PT 20.0 Sec. (12.2-14.9) H 10/02/18 14:56 INR 1.59 (0.87-1.13) H 10/02/18 14:56 APTT 33.5 Sec. (24.2-36.6) 10/02/18 14:56 D-Dimer 901.3 ng/mlDDU (0-234) H 10/02/18 16:06 Sodium 138 mmol/L (137-145) 10/04/18 06:47 Potassium 4.9 mmol/L (3.6-5.0) 10/04/18 06:47 Chloride 104.9 mmol/L (98-107) 10/04/18 06:47 Carbon Dioxide 28 mmol/L (22-30) 10/04/18 06:47 Anion Gap 10 mmol/L 10/04/18 06:47 BUN 21 mg/dL (9-20) H 10/04/18 06:47 Creatinine 1.6 mg/dL (0.8-1.5) H 10/04/18 06:47 Estimated GFR 42 ml/min 10/04/18 06:47 BUN/Creatinine Ratio 13 % 10/04/18 06:47 Glucose 108 mg/dL (75-100) H 10/04/18 06:47 Calcium 8.6 mg/dL (8.4-10.2) 10/04/18 06:47 Total Creatine Kinase 68 units/L (55-170) 10/02/18 14:56 CK-MB (CK-2) 4.6 ng/mL (0.0-4.0) H 10/02/18 14:56 CK-MB (CK-2) Rel Index 6.7 (0-4) H 10/02/18 14:56 Troponin T < 0.010 ng/mL (0.00-0.029) 10/02/18 20:25 NT-Pro-B Natriuret Pep 3857 pg/mL (0-900) H 10/02/18 15:45 TSH 6.150 mlU/mL (0.270-4.200) H 10/02/18 20:10 Free T4 1.12 ng/dL (0.76-1.46) 10/02/18 20:10 Digoxin 1.3 ng/mL (0.9-2.0) 10/04/18 14:08
[2018-10-04] MEDS: LANOXIN PO SCH (17:41)
[2018-10-05] MEDS: LOPRESSOR PO SCH ×4 (01:50→17:27)
[2018-10-05] MEDS: CARDIZEM PO SCH ×4 (01:50→17:28)
[2018-10-05] MEDS: ELIQUIS PO SCH ×2 (10:31→22:28)
[2018-10-05] MEDS: PROTONIX PO SCH (10:31)
[2018-10-05] MEDS: SODIUM CHLORIDE FLUSH SYRINGE 10 ML IV SCH ×2 (10:33→22:33)
--- NOTE | 2018-10-05 11:50 | Progress Note ---
Assessment and Plan Shortness of breath CT angiogram of the chest reported a 2 cm pericardial effusion. echocardiogram this admission reports a moderate size pericardial effusion, no tamponade, LVEF 45-50%. Dysphagia with N/V Dextrocardia Chronic atrial fibrillation, rate control strategy. on oral Eliquis for chronic anticoagulation. echocardiogram 07/2018 reports left ventricle ejection fraction 45-50%. Chronic esophageal stricture Hypertension Recommend: Continue optimal rate controlling agent of A. fib with Toprol, Cardizem and digoxin. Subjective Date of service: 10/05/18 Principal diagnosis: regurgitation/vomiting Interval history: Patient is resting in bed comfortably. He reports his breathing is better. Afib with a well controlled rate on telemetry. Objective Vital Signs Temp Pulse Pulse Pulse Pulse Resp BP 10/05/18 10:33 100 H 119/66 10/05/18 10:31 100 H 10/05/18 10:25 97.6 F 99 H 16 10/05/18 06:30 99.6 F 116 H 22 131/57 10/05/18 06:00 101 H 10/05/18 01:50 98 H 118/61 10/04/18 23:51 98.9 F 66 20 118/61 10/04/18 21:25 91 H 10/04/18 21:18 91 H 91 H 91 H 10/04/18 21:14 98.3 F 98 H 18 94/50 10/04/18 17:55 97.8 F 10/04/18 17:53 120 H 18 111/63 10/04/18 14:00 110 H BP Pulse Ox 10/05/18 10:33 10/05/18 10:31 10/05/18 10:25 119/66 99 10/05/18 06:30 90 10/05/18 06:00 10/05/18 01:50 10/04/18 23:51 94 10/04/18 21:25 10/04/18 21:18 10/04/18 21:14 93 10/04/18 17:55 10/04/18 17:53 92 10/04/18 14:00 - Physical Examination General: No Apparent Distress HEENT: Positive: PERRL Neck: Positive: trachea midline Cardiac: Positive: irregularly irregular Lungs: Positive: Decreased Breath Sounds Neuro: Positive: Grossly Intact Extremities: Present: +1 Edema
--- NOTE | 2018-10-05 16:16 | Progress Note ---
Assessment and Plan Assessment and plan: (1) Atrial fibrillation with rapid ventricular response - Patient is on Toprol, Cardizem and will add digoxin if not controlled per cardiology - Patient will have echo tomorrow (2) Respiratory failure - Resolved with oxygen, supportive care - patient has elevated d-dimer and CT was done which was negative (3) CHF (congestive heart failure), pericardial effusion - Echo showed pericardial effusion and Dr nguyen consider to transfer to another facility with CTS for pericardiocentesis yesterday. Dr Rodgers didn't mention transfer - Patient has dextrocardia (4) Pleural effusion - Continue diuresis (5) DVT prophylaxis Continue eliquis Achalasia - patient has been followed with Dr Oro and had dialtion before - Will follow as an O/P Disposition - Continue inpatient care, per cardiology. History Interval history: Patient was seen and evaluated this morning, patient's shortness of breath is getting better. Management plan discussed with the patient and his family members. Hospitalist Physical - Physical exam Narrative exam: Not in cardiopulmonary distress. The patient appeared well nourished and normally developed. Vital signs as documented. Head exam is unremarkable. No scleral icterus . Neck is without jugular venous distension, thyromegaly, or carotid bruits. Lungs are clear to auscultation. Cardiac exam reveals irregular rate and Rhythm. tachycardia Abdominal exam reveals normal bowel sounds, no masses, no organomegaly and no aortic enlargement. Extremities are nonedematous and both femoral and pedal pulses are normal. 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 No focal weakness. - Constitutional Vitals: Temp Pulse Resp BP Pulse Ox 97.6 F 78 16 119/66 99 10/05/18 10:25 10/05/18 12:18 10/05/18 10:25 10/05/18 10:33 10/05/18 10:25 General appearance: Present: no acute distress Results - Labs CBC & Chem 7: 10/03/18 05:49 10/04/18 06:47 Labs: Laboratory Last Values WBC 6.1 K/mm3 (4.5-11.0) 10/03/18 05:49 RBC 3.74 M/mm3 (3.65-5.03) 10/03/18 05:49 Hgb 11.4 gm/dl (11.8-15.2) L 10/03/18 05:49 Hct 35.1 % (35.5-45.6) L 10/03/18 05:49 MCV 94 fl (84-94) 10/03/18 05:49 MCH 31 pg (28-32) 10/03/18 05:49 MCHC 33 % (32-34) 10/03/18 05:49 RDW 15.5 % (13.2-15.2) H 10/03/18 05:49 Plt Count 116 K/mm3 (140-440) L 10/03/18 05:49 Lymph % (Auto) 20.8 % (13.4-35.0) 10/03/18 05:49 [place] % (Auto) 9.7 % (0.0-7.3) H 10/03/18 05:49 Eos % (Auto) 1.3 % (0.0-4.3) 10/03/18 05:49 Baso % (Auto) 0.5 % (0.0-1.8) 10/03/18 05:49 Lymph # 1.3 K/mm3 (1.2-5.4) 10/03/18 05:49 [place] # 0.6 K/mm3 (0.0-0.8) 10/03/18 05:49 Eos # 0.1 K/mm3 (0.0-0.4) 10/03/18 05:49 Baso # 0.0 K/mm3 (0.0-0.1) 10/03/18 05:49 Seg Neutrophils % 67.7 % (40.0-70.0) 10/03/18 05:49 Seg Neutrophils # 4.1 K/mm3 (1.8-7.7) 10/03/18 05:49 PT 20.0 Sec. (12.2-14.9) H 10/02/18 14:56 INR 1.59 (0.87-1.13) H 10/02/18 14:56 APTT 33.5 Sec. (24.2-36.6) 10/02/18 14:56 D-Dimer 901.3 ng/mlDDU (0-234) H 10/02/18 16:06 Sodium 138 mmol/L (137-145) 10/04/18 06:47 Potassium 4.9 mmol/L (3.6-5.0) 10/04/18 06:47 Chloride 104.9 mmol/L (98-107) 10/04/18 06:47 Carbon Dioxide 28 mmol/L (22-30) 10/04/18 06:47 Anion Gap 10 mmol/L 10/04/18 06:47 BUN 21 mg/dL (9-20) H 10/04/18 06:47 Creatinine 1.6 mg/dL (0.8-1.5) H 10/04/18 06:47 Estimated GFR 42 ml/min 10/04/18 06:47 BUN/Creatinine Ratio 13 % 10/04/18 06:47 Glucose 108 mg/dL (75-100) H 10/04/18 06:47 Calcium 8.6 mg/dL (8.4-10.2) 10/04/18 06:47 Total Creatine Kinase 68 units/L (55-170) 10/02/18 14:56 CK-MB (CK-2) 4.6 ng/mL (0.0-4.0) H 10/02/18 14:56 CK-MB (CK-2) Rel Index 6.7 (0-4) H 10/02/18 14:56 Troponin T < 0.010 ng/mL (0.00-0.029) 10/02/18 20:25 NT-Pro-B Natriuret Pep 3857 pg/mL (0-900) H 10/02/18 15:45 TSH 6.150 mlU/mL (0.270-4.200) H 10/02/18 20:10 Free T4 1.12 ng/dL (0.76-1.46) 10/02/18 20:10 Digoxin 1.3 ng/mL (0.9-2.0) 10/04/18 14:08
[2018-10-05] MEDS: LANOXIN PO SCH (17:28)
[2018-10-05] MEDS: ZOFRAN IV PRN (22:33)
[2018-10-06] MEDS: LOPRESSOR PO SCH ×4 (00:36→19:05)
[2018-10-06] MEDS: CARDIZEM PO SCH ×4 (00:37→19:05)
[2018-10-06] MEDS ORDERED: LANOXIN PO SCH ×2 (09:32→17:00)
--- NOTE | 2018-10-06 09:36 | Progress Note ---
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 The effusion was present at that time but appears to have worsened recently. Recommendations: Transfer to [facility] for pericardial window due to underlying dextrocardia Hold eliquis for the time being - risk of hemorrhagic pericardial fluid conversion Thoracic surgery will be consulted at [facility] to address retirement solution for his achalasia Subjective Date of service: 10/06/18 Principal diagnosis: regurgitation/vomiting Interval history: Feeling better Still has secretions Objective Vital Signs Temp Pulse Resp BP BP BP Pulse Ox 10/06/18 05:59 98.1 F 122 H 18 139/63 93 10/06/18 01:20 98.8 F 112 H 18 134/52 91 10/06/18 00:18 112 H 10/05/18 20:35 98.4 F 97 H 18 135/71 94 10/05/18 17:28 98.8 F 85 18 132/67 94 10/05/18 12:18 78 10/05/18 10:33 100 H 119/66 10/05/18 10:31 100 H 10/05/18 10:25 97.6 F 99 H 16 119/66 99 - Physical Examination General: No Apparent Distress HEENT: Positive: PERRL Neck: Positive: trachea midline Cardiac: Positive: irregularly irregular Lungs: Positive: Decreased Breath Sounds Neuro: Positive: Grossly Intact Extremities: Present: +1 Edema
--- NOTE | 2018-10-06 09:37 | Discharge Summary ---
Providers - Providers Date of Admission: 10/02/18 19:44 Attending physician: MAUDE MANUEL MD 10/02/18 19:46 Consult to Cardiology [CONS] Routine Consulting Provider: JAROD CORTES Reason For Exam: chf/afib 10/03/18 13:33 Consult to Physician [CONS] Routine Comment: Consulting Provider: MELVI IVERSON Physician Instructions: Reason For Exam: regurgitation and vomiting Primary care physician: MARIN DUEÑAS Hospitalization Reason for admission: a. fib with RVR, respiratory failure Condition: Stable Hospital course: Admission H/P 78 YO Male with Atrial Fib currently on Therapeutic Anticoagulation(Eliquis), Leukemia(In Remission), HLD, HTN presents to ED for evaluation. Pt states that he has experienced chest palpitations for the past 1 day with worsening symptoms over the past 6 hours. Pt also acknowledges shortness of breath and right sided chest pain. Pt states that pain is 3-5/10, sharp, constant, not worsened with exertion, not relieved with rest. Pt transported to [facility] via private vehicle. Pt seen and evaluated in ED and found to have Atrial Fib with RVR as well as Respiratory Failure. Pt also found to have symptoms consistent with CHF complicated by bilateral pleural effusions. Pt initiated on amiodarone drip and admitted to telemetry. Cardiology consulted in ED. Pt denies fever, chills, NVD, Trauma, Medication noncompliance, skin rash, or recent ill contacts. Pt family at bedside during exam and interview. Discussed plan of care. Pt and family acknowledge understanding and agreement with care plan. Patient was admitted to the floor and was managed for his a.fib with RVR, respiratory failure. GI was cosulted for achalasia and patient has been followed with Dr Oro and has dilatation [facility] recommend to follow there as an O/P. patient didn't have any problem in Puree diet. Cardiology was consulted and recomment ot transfer to another facility where cardiothoracic surgeon is available. cardiology recommendations Shortness of breath Echocardiogram reviewed - moderate size pericardial effusion with pericardial coagulum/fibrinous deposits, no tamponade, LVEF 45-50% Echocardiogram 07/26/2018 at [facility] revealed LVEF 45-50%, severe LAE, mild AV stenosis, small pericardial effusion Coronary angio 01/2001 - LVEF 45%, 60% mid LAD, 50% mid Cx, 100% mid RCA with left to right collaterals MPI 12/2008 - No ischemia Permanent atrial fibrillation on digoxin, metoprolol ad diltiazem for rate control Last eliquis dose was October 05 at 10 pm Dextrocardia Achalasia History of myeloid leukemia in remission Systemic Hypertension I have reviewed the echo images from [facility]. The effusion was present at that time but appears to have worsened recently. Recommendations: Transfer to [facility] for pericardial window due to underlying dextrocardia Hold eliquis for the time being - risk of hemorrhagic pericardial fluid conversion Thoracic surgery will be consulted at [facility] to address adjunct faculty for medical terminology solution for his achalasia Patient was hemodynamically stable at the time of discharge. Stable for transfer. Disposition: [id number]/[id number] [facility] IP Time spent for discharge: 32 minutes - Discharge Diagnoses (1) Pericardial effusion without cardiac tamponade Status: Acute (2) Achalasia Status: Acute (3) Dextrocardia Status: Acute (4) Atrial fibrillation with rapid ventricular response Status: Acute (5) CHF (congestive heart failure) Status: Acute Qualifiers: Heart failure type: systolic Heart failure chronicity: acute Qualified Code(s): I50.21 - Acute systolic (congestive) heart failure (6) Respiratory failure Status: Acute Qualifiers: Chronicity: acute Respiratory failure complication: hypoxia Qualified Code(s): J96.01 - Acute respiratory failure with hypoxia Core Measure Documentation - Palliative Care Palliative Care/ Comfort Measures: Not Applicable - Core Measures Any of the following diagnoses?: none Exam - Physical Exam Narrative exam: Not in cardiopulmonary distress. The patient appeared well nourished and normally developed. Vital signs as documented. Head exam is unremarkable. No scleral icterus . Neck is without jugular venous distension, thyromegaly, or carotid bruits. Lungs are clear to auscultation. Cardiac exam reveals irregular rate and Rhythm. tachycardia Abdominal exam reveals normal bowel sounds, no masses, no organomegaly and no aortic enlargement. Extremities are nonedematous and both femoral and pedal pulses are normal. BOOKING OFFICER: Alert and oriented 3. No focal weakness. - Constitutional Vitals: Temp Pulse Resp BP Pulse Ox 98.1 F 122 H 18 139/63 93 10/06/18 05:59 10/06/18 05:59 10/06/18 05:59 10/06/18 05:59 10/06/18 05:59 Plan Activity: no restrictions Weight Bearing Status: Full Weight Bearing Diet: low salt Follow up with: PRIMARY CARE, [Referring] - 3-5 Days
[2018-10-06] MEDS: PROTONIX PO SCH (10:57)
[2018-10-06] MEDS: SODIUM CHLORIDE FLUSH SYRINGE 10 ML IV SCH (10:58)
[2018-10-06 17:01] VITALS: BP 137/63
== END 2018-10-06 20:52 | disposition short-term general hospital (02) | DRG 291 ==
LOC: ED 14:37 → 4A 19:44
PROVIDERS: ADMIT Internal Medicine; ATTEND Internal Medicine
DX: I11.0 Hypertensive heart disease with heart failure (principal); I50.21 Acute systolic (congestive) heart failure; J96.90 Respiratory failure, unspecified, unspecified whether with hypoxia or hypercapnia; I31.3 Pericardial effusion (noninflammatory); Q24.0 Dextrocardia; I48.91 Unspecified atrial fibrillation; I42.9 Cardiomyopathy, unspecified; E78.5 Hyperlipidemia, unspecified; K22.2 Esophageal obstruction; R13.10 Dysphagia, unspecified; I35.0 Nonrheumatic aortic (valve) stenosis; K22.0 Achalasia of cardia; Z85.6 Personal history of leukemia; Z79.01 Long term (current) use of anticoagulants
CPT/HCPCS: 36415; 71045; 71275; 80048; 80162; 82550; 82553; 83880; 84439; 84443; 84484; 85025; 85379; 85610; 85730; 93005; 93010; 93306; G0378; J0282; J1160; J1940; J2405; J7030; J7060; Q9967